=== PATIENT | male | born 1950 | race Caucasian/White ===

== ENCOUNTER 2019-12-03 07:48 | Outpatient (CLI) | payer OTHER, SELFPAY ==
--- NOTE | ~2019-12-03 | US_ITS ---
EXAMINATION: US aorta [facility] scr[facility] DATE: 12/03/2019 08:47 INDICATION: Abdominal aortic aneurysm screening, history of hypertension, diabetes, obesity, current smoker TECHNIQUE: Grayscale, color Doppler, and pulsed Doppler images of the aorta and common iliac arteries were obtained. COMPARISON: None. FINDINGS: Maximum vascular dimensions are as follows: Proximal aorta: 2.6 cm Mid aorta: 1.8 cm Distal aorta: 1.9 cm Right common iliac artery: 2.0 cm Left common iliac artery: 2.4 cm There is no evidence of abdominal aortic aneurysm. IMPRESSION: 1. No abdominal aortic aneurysm. Reviewed, dictated and finalized at location A. L CAMPAIGN SPECIALIST
--- NOTE | ~2019-12-03 | US_ITS ---
US arterial ankle brachial ind INDICATION: Peripheral vascular disease TECHNIQUE: Segmental pressures and plethysmographic and Doppler waveforms of the brachial and lower e xtremity arteries were obtained. COMPARISON: None. FINDINGS: Right and left brachial artery pressures of 135 mm Hg and 135 mm Hg, respectively, are concordant (no rmal difference <= 30 mmHg). The right ankle-brachial index (DAGMAR) is 1.28 (normal >= 0.9-1.0). The right great toe-brachial index (TBI) is 0.62 (normal >= 0.60). The left DAGMAR is 1.27. The left TBI is 0.98. IMPRESSION: 1. Normal ankle-brachial indices. Reviewed, dictated and finalized at location A. TS OFFICER
--- NOTE | ~2019-12-03 | XR_ITS ---
EXAMINATION: XR knee RT 2V DATE: 12/03/2019 08:57 INDICATION: Right knee pain TECHNIQUE: Two views of the right knee were obtained. COMPARISON: None. FINDINGS: Alignment is normal. No fracture or osteochondral lesion. There is tricompartmental osteoar thritis, worst in the medial compartment. No joint effusion/synovitis. Soft tissues are unremarkable . IMPRESSION: 1. Osteoarthritis without acute osseous abnormality. Reviewed, dictated and finalized at location A. NG SUPERVISOR
--- NOTE | ~2019-12-03 | CT_ITS ---
EXAMINATION: CT lung screening DATE: 12/03/2019 08:54 INDICATION: Personal history of tobacco dependence, current smoker with 40 pack year history TECHNIQUE: Computed tomography (CT) of the chest was performed without intravenous contrast. The dose -length product (DLP) was 251.87 mGy-cm. Automated exposure control and iterative reconstruction tech [employer] were employed. COMPARISON: None FINDINGS: There is mild to moderate emphysema. There is a 4 mm nodule of the left upper lobe on image 34. There is no pleural effusion or pneumothorax. Calcified pulmonary nodules and calcified right pa ratracheal lymph nodes are consistent with old granulomatous disease. There is mild dependent atelect asis. No pathologically enlarged thoracic lymph nodes are identified. The heart size is normal. There is moderate thoracic spondylosis. IMPRESSION: 1. Lung-RADS category 2: Benign appearance or behavior. Continue annual screening with noncontrast lo w-dose chest CT in 12 months. Reviewed, dictated and finalized at location A. ICAL TREATMENT PLANT TECHNICIAN IMPRESSION: 1. Lung-RADS category 2: Benign appearance or behavior. Continue annual screeni ng with noncontrast low-dose chest CT in 12 months.
--- NOTE | ~2019-12-03 | XR_ITS ---
EXAMINATION: XR knee LT 2V DATE: 12/03/2019 08:57 INDICATION: Left knee pain TECHNIQUE: Two views of the left knee were obtained. COMPARISON: None. FINDINGS: Alignment is normal. No fracture or osteochondral lesion. There is moderate tricompartmenta l osteoarthritis characterized by marginal osteophytes and joint space narrowing. A small knee joint effusion is present. Soft tissues are unremarkable. IMPRESSION: 1. Small knee joint effusion. No acute osseous abnormality. Reviewed, dictated and finalized at location A. E CARPENTER HELPER
[2019-12-03 08:16] LABS: Basophils Percent Auto 0.4 % (0.2-1.2); Eosinophils Absolute Auto 0.2 K/mm3 (0-0.3); Eosinophils Percent Auto 2.3 % (0-4.4); Hemoglobin 14.9 g/dL (14.0-18.0); Immature Granulocyte Absolute 0.03 K/mm3 (0.00-0.031); Immature Granulocyte Percent A 0.3 % (0-0.5); Lymphocytes Absolute Auto 3.07 K/mm3 (0.9-3.2); Lymphocytes Percent Auto 30.4 % (18.3-44.2); Mean Corpuscular HGB Conc 33.9 g/dl (32-36); Mean Corpuscular Hemoglobin 31.8 pg (26-34); Mean Corpuscular Volume 93.8 fl (80-100); Mean Platelet Volume 9.4 fl (7.4-10.4); Monocytes Absolute Auto 0.8 K/mm3 (0.1-0.6); Monocytes Percent Auto 8.2 % (2.6-8.5); Neutrophils Absolute Auto 5.9 K/mm3 (1.3-6.7); Neutrophils Percent Auto 58.4 % (45.5-73.1); Platelet Count Result 244 k/mm3 (150-375); Red Blood Count 4.69 M/mm3 (4.6-6.20); Red Cell Distribution Width 12.8 % (11.5-14.5); White Blood Count 10.1 K/mm3 (4.5-10.0)
[2019-12-03 08:24] LABS: Hemoglobin A1C 9.8 % (<5.7)
[2019-12-03 08:28] LABS: Alanine Aminotransferase 50 U/L (4-50); Albumin Level 4.4 g/dL (3.5-5.1); Alkaline Phosphatase 108 U/L (38-126); Aspartate Amino Transferase 36 U/L (17-59); Bilirubin,Total 0.6 mg/dL (0.2-1.3); Blood Urea Nitrogen 18 mg/dL (9-20); Calcium 9.2 mg/dL (8.4-10.2); Carbon Dioxide 25 mmol/L (22-30); Chloride 103 mmol/L (98-107); Cholesterol 212 mg/dL (0-200); Estimated Glomerular Filt Rate > 60; Glucose 276 mg/dL (75-110); HDL Direct 28 mg/dL; Potassium 4.4 mmol/L (3.4-5.0); Sodium 140 mmol/L (137-145); Triglycerides 258 mg/dL (<150)
[2019-12-03 08:39] LABS: LDL Cholesterol Direct 149 mg/dL
--- NOTE | 2019-12-03 09:08 | ECG_ITS ---
Measurements Intervals [place] Rate: 73 P: 97 HI: 201 QRS: 58 QRSD: 93 T: 56 QT: 385 QTc: 426 Interpretive Statements SINUS RHYTHM NORMAL ECG Electronically Signed On 12-03-2019 9:47:31 SURG RN by Bora Gallegos D.O.
[2019-12-03 09:17] LABS: Creatinine Urine 100.1 mg/dL
[2019-12-03 09:22] LABS: MALB Creatinine Ratio 25.2 mg/g (0-30); Microalbumin Urine Random 25.2 mg/L (0-16.7)
[2019-12-03 09:30] LABS: Prostate Specific Antigen 0.9 ng/mL (< OR = 4.0)
== END 2019-12-03 07:49 | disposition home or self-care (01) ==
PROVIDERS: PCP Internal Medicine; Visit Provider Internal Medicine
DX: R09.89 Other specified symptoms and signs involving the circulatory and respiratory systems (principal); Z12.5 Encounter for screening for malignant neoplasm of prostate; E11.9 Type 2 diabetes mellitus without complications; Z79.899 Other long term (current) drug therapy; I10 Essential (primary) hypertension; Z87.891 Personal history of nicotine dependence; Z12.2 Encounter for screening for malignant neoplasm of respiratory organs; M17.11 Unilateral primary osteoarthritis, right knee; M25.462 Effusion, left knee
CPT/HCPCS: 36415; 73560; 76706; 80053; 80061; 82043; 83036; 84153; 84443; 85025; 93005; 93922; G0103; G0297

== ENCOUNTER 2021-04-15 10:24 | Outpatient (CLI) | payer OTHER, SELFPAY ==
--- NOTE | ~2021-04-15 | CT_ITS ---
EXAMINATION: CT lung screening DATE: 04/15/2021 10:42 INDICATION: Cough. Personal history of tobacco dependence. TECHNIQUE: Computed tomography (CT) of the chest was performed without intravenous contrast. The dose -length product was 212.44 mGy-cm. Automated exposure control and iterative reconstruction technique were employed. COMPARISON: CT dated 12/03/2019 FINDINGS: Heart size is normal. No mediastinal lymphadenopathy. No significant pleural or pericardial effusion. There is emphysema. No significant change to 3 mm left upper lobe nodule. There are nonobstructing bilateral renal stones . There are small right upper lobe nodules measuring 3 mm or less. There is a 5 mm right upper lobe n odule, image 57 which is unchanged from prior study. No endobronchial lesions. Dependent atelectasis. Moderate thoracic spondylosis. IMPRESSION: 1. Lung-RADS category 2: Benign appearance or behavior. Continue annual screening with noncontrast lo w-dose chest CT in 12 months. Reviewed, dictated and finalized at location A. IMPRESSION: 1. Lung-RADS category 2: Benign appearance or behavior. Continue annual screeni ng with noncontrast low-dose chest CT in 12 months.
== END 2021-04-15 10:25 | disposition home or self-care (01) ==
PROVIDERS: PCP Internal Medicine; Visit Provider Internal Medicine
DX: Z87.891 Personal history of nicotine dependence (principal)
CPT/HCPCS: 71271

== ENCOUNTER 2022-04-22 11:54 | Outpatient (CLI) | payer OTHER, SELFPAY ==
--- NOTE | ~2022-04-22 | CT_ITS ---
EXAMINATION: CT lung screening DATE: 04/22/2022 12:37 INDICATION: History of tobacco dependence. TECHNIQUE: Computed tomography (CT) of the chest was performed without intravenous contrast. The dose -length product was 270.18 mGy-cm. Automated exposure control and iterative reconstruction technique were employed. COMPARISON: CT dated 04/15/2021 FINDINGS: No significant pericardial effusion. Calcified right paratracheal lymph nodes, consistent w ith chronic granulomatous disease. No endobronchial lesions. There is atherosclerosis of the aorta an d coronary arteries. There are nonobstructing bilateral renal stones. There is a 4 mm nodule in the r ight upper lobe, coronal image 68 there are additional 2-3 mm nodules in the right upper lobe. There is emphysema. Stable 5 mm right upper lobe nodule, image 55. No new pulmonary nodules or masses. Mild thoracic spondylosis. IMPRESSION: 1. Lung-RADS category 2: Benign appearance or behavior. Continue annual screening with noncontrast lo w-dose chest CT in 12 months. Reviewed, dictated and finalized at location A. IMPRESSION: 1. Lung-RADS category 2: Benign appearance or behavior. Continue annual screeni ng with noncontrast low-dose chest CT in 12 months.
== END 2022-04-22 11:55 | disposition home or self-care (01) ==
PROVIDERS: PCP Internal Medicine; Visit Provider Internal Medicine
DX: Z12.2 Encounter for screening for malignant neoplasm of respiratory organs (principal); Z87.891 Personal history of nicotine dependence
CPT/HCPCS: 71271

== ENCOUNTER 2022-05-16 11:14 | Emergency (ER) | payer OTHER, SELFPAY ==
[2022-05-16] VITALS (46 sets, daily range): BP systolic 112–146; BP diastolic 60–83; PULSE 69–89; RESP 15–27; TEMP 36.5–36.7; O2SAT 95–99
--- NOTE | ~2022-05-16 | CT_ITS ---
EXAMINATION: CT brain wo con DATE: 05/16/2022 11:40 INDICATION: TECHNIQUE: Computed tomography (CT) of the head was performed without intravenous contrast. The mA wa s adjusted according to patient size. Iterative reconstruction technique was employed. Exam dose: 60 5.33 mGy-cm total exam DLP. COMPARISON: None FINDINGS: There is an asymmetric ill-defined approximately 2-2.5 cm area of diminished attenuation wi th suggestion of some calcifications or less likely focal areas of hemorrhage in the left basal gangl ia and thalamic area, of concern for intracranial neoplasm.. There is effacement of the left lateral ventricular body as a result. There is an asymmetric approximately 1.6 cm area of diminished attenuation in the posterior left kevin etal area and some focal diminished attenuation of the high left parietal cerebral white matter. MR imaging is recommended for further evaluation. No intracranial mass lesion or hemorrhage is noted otherwise. Minimal bilateral basal ganglia calcification. Bilateral carotid siphon internal carotid artery calcifications. There is nonspecific diminished atte nuation of the cerebral white matter, likely due to chronic small vessel ischemic changes. No subdural or epidural hematoma. No fracture or bone destruction of the cranial vault. The mastoid air cells and included paranasal si nuses are normally developed and aerated. IMPRESSION: One or more left cerebral mass lesions is suggested. MR imaging of the brain is recommen ded for further evaluation. Reviewed, dictated and finalized at Location A. Reviewed, dictated and finalized at location A. IMPRESSION: One or more left cerebral mass lesions is suggested. MR imaging of the brain is recommended for further evaluation.
--- NOTE | ~2022-05-16 | XR_ITS ---
XR chest 1V portable DATE: 05/16/2022 13:30 INDICATION: Dizziness for 2 days TECHNIQUE: Portable upright AP views on 05/16/2022 at 1326 hours COMPARISON: 04/22/2022 CT lung screening FINDINGS: Normal heart size. No hilar or mediastinal enlargement. No pulmonary infiltrate or consolid ation, pleural effusion or pulmonary vascular congestion or pneumothorax is detected. IMPRESSION: No active cardiopulmonary disease Reviewed, dictated and finalized at location A.
--- NOTE | 2022-05-16 11:24 | ECG_ITS ---
Measurements Intervals [place] Rate: 72 P: 87 SC: 195 QRS: 16 QRSD: 91 T: 10 QT: 376 QTc: 413 Interpretive Statements SINUS RHYTHM NORMAL ECG COMPARED TO ECG 12/03/2019 09:18:24 NO SIGNIFICANT CHANGES Electronically Signed On 05-17-2022 14:10:17 CDT by Quinton Villarreal M.D.
--- NOTE | 2022-05-16 11:26 | PC.NURSE ---
EDP Beba notified of patient's s/s. Per EDP verbal order read back, order CT of brain WO.
[2022-05-16 11:58] LABS: Basophils Absolute Auto 0.1 K/mm3 (0.0-0.1); Basophils Percent Auto 0.6 % (0.2-1.2); Eosinophils Absolute Auto 0.2 K/mm3 (0-0.3); Eosinophils Percent Auto 2.5 % (0-4.4); Hematocrit 44.7 % (42.0-52.0); Hemoglobin 14.6 g/dL (14.0-18.0); Immature Granulocyte Absolute 0.02 K/mm3 (0.00-0.031); Immature Granulocyte Percent A 0.2 % (0-0.5); Lymphocytes Absolute Auto 1.91 K/mm3 (0.9-3.2); Lymphocytes Percent Auto 23.8 % (18.3-44.2); Mean Corpuscular HGB Conc 32.7 g/dl (32-36); Mean Corpuscular Hemoglobin 31.1 pg (26-34); Mean Corpuscular Volume 95.3 fl (80-100); Mean Platelet Volume 9.3 fl (7.4-10.4); Monocytes Absolute Auto 0.6 K/mm3 (0.1-0.6); Monocytes Percent Auto 6.8 % (2.6-8.5); Neutrophils Absolute Auto 5.3 K/mm3 (1.3-6.7); Neutrophils Percent Auto 66.1 % (45.5-73.1); Platelet Count Result 231 k/mm3 (150-375); Red Blood Count 4.69 M/mm3 (4.6-6.20); Red Cell Distribution Width 14.2 % (11.5-14.5)
[2022-05-16 12:13] LABS: Alanine Aminotransferase 35 U/L (6-50); Albumin Level 4.5 g/dL (3.5-5.1); Alkaline Phosphatase 77 U/L (38-126); Anion Gap 10 mmol/L (8-16); Aspartate Amino Transferase 32 U/L (17-59); Bilirubin,Total 0.7 mg/dL (0.2-1.3); Blood Urea Nitrogen 11 mg/dL (9-20); Calcium 9.4 mg/dL (8.4-10.2); Carbon Dioxide 24 mmol/L (22-30); Chloride 104 mmol/L (98-107); Estimated CRCL calculation 79 ml/min; Estimated Glomerular Filt Rate > 60; Glucose 169 mg/dL (65-110); Potassium 4.1 mmol/L (3.4-5.0); Sodium 138 mmol/L (137-145)
--- NOTE | 2022-05-16 13:07 | ED.DIZZY ---
HPI - Dizziness General Chief Complaint: Dizziness Stated Complaint: dizzy, ataxia Time Seen by Provider: 05/16/22 13:03 Source: patient and family Mode of arrival: ambulatory Limitations: no limitations History of Present Illness HPI Narrative: 71 years old white male brought to the emergency room by his daughter because of dizziness, lightheadedness, wobbly, unsteady gait, right blurred vision, weakness right hand started 2 days ago, currently patient still feeling wobbly. History of diabetes, COPD, tobacco use, does not drink. Currently on baby aspirin once a day, no blood thinner, no drugs. His daughter at the bedside. Patient does not believe in COVID-19 vaccination Related Data Home Medications Medication Instructions Recorded Confirmed cholecalciferol (vitamin D3) 125 125 mcg PO DAILY 03/17/21 04/08/22 mcg (5,000 unit) capsule aspirin 81 mg tablet,delayed 81 mg PO DAILY 07/14/21 04/08/22 release (Adult Aspirin Regimen) Allergies Allergy/AdvReac Type Severity Reaction Status Date / Time Penicillins Allergy Intermediate ITCH AND Verified 05/16/22 12:19 FEVER clarithromycin Allergy Mild [place] hot Verified 05/16/22 12:19 Review of Systems Review of Systems: All systems reviewed & are unremarkable except as noted in HPI and below PMFSH Family History Family History Grandparent Family history of cardiovascular disease Mother Family history of cardiovascular disease Family history of lung cancer Social History Social History Smoking packs per day: 1 Smoking cigarettes per day: 20.0 Years smoked: 40 Smoking pack-years: 40.00 Smoking status: Current every day smoker Tobacco type: cigarettes Second hand tobacco smoke exposure: No Alcohol intake: never Substance use: never Substance use type: does not use Exam Narrative: General appearance: Well-developed, well-nourished Skin: Normal color Head: Normocephalic, nontraumatic Eyes: Clear conjunctiva ENT: Oropharynx normal, ears normal, nose normal Neck: Supple, nontender Chest and respiratory: Airway patent, no respiratory distress, no accessory muscle use Heart: Regular rate/rhythm Abdomen: Soft, nontender, no organomegaly, quiet bowel sounds Vascular: Normal peripheral pulses, normal capillary refill. Musculoskeletal: Normal range of motion, nontender back Neurologic: Alert and oriented ?3, asymmetric face, drift right upper extremity, unable to walk steady Course Consultations Consultation #1: DR LEDBETTER Neurologist at [facility], Consultation #2: DR MO Neurosurgeon at [facility] Consultation #3: DR BRAUN, hospitalist at [facility] who accepted patient transfer, No bed available at this time. Patient is on the waiting list Vital Signs Vital signs: Vital Signs Temperature 36.5 C 05/16/22 11:18 Pulse Rate 78 05/16/22 11:18 Respiratory Rate 16 05/16/22 11:18 Blood Pressure 146/83 H 05/16/22 11:18 Pulse Oximetry 99 05/16/22 11:18 Oxygen Delivery Room Air 05/16/22 11:18 Temperature 36.5 C 05/16/22 11:18 Pulse Rate 78 05/16/22 11:18 Respiratory Rate 16 05/16/22 11:18 Blood Pressure 146/83 H 05/16/22 11:18 Pulse Oximetry 99 05/16/22 11:18 Oxygen Delivery Room Air 05/16/22 11:18 Transfer Transfered to: [facility] Hospital Transportation: [facility] Accepting physician: DR BRAUN, hospitalist MDM - Dizziness Lab Data Result diagrams: 05/16/22 11:46 05/16/22 11:46 Labs: Lab Results 05/16/22 05/16/22 05/16/22 Range/Units 11:46 1
[2022-05-16] MEDS: ONDANSETRON INJ 4 MG/2 ML VIAL IV PUSH (13:32)
[2022-05-16 13:33] LABS: Add Urine Microscopic? YES; Appearance Urine Cloudy (Clear); Bilirubin Urine Negative (Negative); Blood Urine 3+ (Negative); Color Urine Red (Yellow); Glucose Urine UA Negative (Negative); Ketones Urine Negative (Negative); Leukocyte Esterase Ur Negative LEU/UL (Negative); Nitrate Urine Negative (Negative); Protein Urine 1+ mg/dL (Negative); Specific Grav Ur 1.015 (1.001-1.035); Urobilinogen Urine 0.2 mg/dL (<2.0); pH Urine 6.5 (5.0-9.0)
[2022-05-16 13:36] LABS: INR 0.9; Prothrombin Time 12.1 Seconds (11.1-14.7)
[2022-05-16 13:37] LABS: Partial Thromboplastin Time 29.4 SECONDS (22.3-36.8)
[2022-05-16 13:38] LABS: RBC Urine >75 /hpf (0-2); Squamous Epithelial Cell Urine Rare /hpf (Few); WBC Urine >75 /hpf
[2022-05-16 13:46] LABS: Troponin I < 0.012 ng/mL (0.000-0.034)
[2022-05-16 14:07] LABS: SARS-CoV-2 RNA PCR Negative
[2022-05-16] MEDS: levETIRAcetam 500 MG TABLET PO (14:10)
[2022-05-16] MEDS: LORazepam (*CRX) 0.5 MG TABLET 1 MG PO (14:55)
--- NOTE | 2022-05-16 19:04 | PC.NURSE ---
called [facility] no beds available at this time.190
[2022-05-16] MEDS: ALBUTEROL SULFATE NEB 2.5 MG/3 ML INH INHALATION (21:10)
--- NOTE | 2022-05-16 23:52 | PC.NURSE ---
Addendum entered by Carleen Rebolledo RN 05/16/22 23:56: EDP Idalia Garcia notified of pt leaving AMA. Original Note: Pt called this RN into room, stating he wanted to leave bc his wait had been too long, and he was uncomfortable. Assured pt we would move him into a private room when one became available, as we were still waiting on bed assignment at [facility]. Pt still wants to leave. Pt a/o to person, place, situation, and time. present. Speech clear. Risks of leaving AMA discussed. AMA form signed. communications tower technician escorted pt in wc along c to ED wr.
--- NOTE | 2022-05-17 00:04 | PC.NURSE ---
2348: Patient left AMA, called [facility] and had patient taken off waitlist.
== END 2022-05-16 23:57 | disposition left against medical advice (07) ==
PROVIDERS: Emergency Provider Emergency Medicine; PCP Internal Medicine
DX: I63.9 Cerebral infarction, unspecified (principal); G93.89 Other specified disorders of brain; R29.703 NIHSS score 3; Z20.822 Contact with and (suspected) exposure to COVID-19; E11.9 Type 2 diabetes mellitus without complications; J44.9 Chronic obstructive pulmonary disease, unspecified; Z28.310 Unvaccinated for COVID-19; F17.210 Nicotine dependence, cigarettes, uncomplicated; Z79.82 Long term (current) use of aspirin; Z79.4 Long term (current) use of insulin; Z79.84 Long term (current) use of oral hypoglycemic drugs
CPT/HCPCS: 36415; 70450; 71045; 80053; 81001; 84484; 85025; 85610; 85730; 87086; 93005; 94640; 96374; 96375; 99284; A9270; C9803; J1100; J2405; U0003; U0005